=== PATIENT | male | born 1980 | race Caucasian/White ===

== ENCOUNTER 2018-10-08 21:38 | Emergency (ER) | payer MEDICAID ==
[~2018-10-08] VITALS: Ht 182.9 cm; Wt 80.1 kg
[~2018-10-08 21:38] MED LIST: GUAI10SY2 PO
[2018-10-08 22:14] VITALS: BP 145/87
[2018-10-08] MEDS ORDERED: bacitracin 15gm ointment TP ONE (22:20)
== END 2018-10-09 00:40 ==
LOC: ER 21:38
DX: S01.01XA Laceration without foreign body of scalp, initial encounter (principal); F17.200 Nicotine dependence, unspecified, uncomplicated; Z79.899 Other long term (current) drug therapy; X79.XXXA Intentional self-harm by blunt object, initial encounter; Y93.89 Activity, other specified; Y92.89 Other specified places as the place of occurrence of the external cause; Y99.8 Other external cause status
CPT/HCPCS: 70450; 99284

== ENCOUNTER 2019-01-27 09:54 | Emergency (ER) | payer MEDICAID ==
[~2019-01-27] VITALS: Ht 182.9 cm; Wt 77.3 kg
[2019-01-27 10:16] VITALS: BP 130/87
[2019-01-27] MEDS ORDERED: SULF1TAB49 PO (11:44)
== END 2019-01-27 11:57 | disposition home or self-care (01) ==
LOC: ER 09:55
DX: L02.414 Cutaneous abscess of left upper limb (principal); L98.8 Other specified disorders of the skin and subcutaneous tissue; Z79.899 Other long term (current) drug therapy
CPT/HCPCS: 99283

== ENCOUNTER 2019-07-26 09:03 | Emergency (ER) | payer MEDICAID, OTHER ==
[~2019-07-26] VITALS: Ht 182.9 cm; Wt 75.0 kg
[2019-07-26] MEDS ORDERED: diphenhydrAMINE 50 mg/ml inj IM ONE (09:10)
[2019-07-26] MEDS ORDERED: haloperidol lactate 5mg/ml inj IM ONE (09:10)
[2019-07-26] MEDS ORDERED: LORazepam 2 mg/ml vial IM ONE (09:10)
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
[2019-07-26 10:24] LABS: BASOPHILS % (AUTO) 0.8 % (0-1); EOSINOPHILS # (AUTO) 0.1 X10'3 (0-0.9); EOSINOPHILS % (AUTO) 1.2 % (0-6); HEMATOCRIT 45.1 % (42.0-52.0); HEMOGLOBIN 15.4 g/dl (14.0-17.9); LYMPHOCYTES # (AUTO) 2.2 X10'3 (1.1-4.8); LYMPHOCYTES % (AUTO) 39.6 % (21-51); MEAN CORPUSCULAR HEMOGLOBIN 30.7 PG (27.0-31.0); MEAN CORPUSCULAR HGB CONC 34.2 g/dL (33.0-36.5); MEAN CORPUSCULAR VOLUME 89.8 FL (78-98); MEAN PLATELET VOLUME 7.3 FL (7.4-10.4); MONOCYTES # (AUTO) 0.4 X10'3 (0-0.9); MONOCYTES % (AUTO) 7.8 % (2-12); NEUTROPHILS # (AUTO) 2.8 X10'3 (1.8-7.7); NEUTROPHILS % (AUTO) 50.6 % (42-75); PLATELET COUNT 317 X10'3 (140-440); RED BLOOD COUNT 5.02 X10'6 (4.70-6.10); RED CELL DISTRIBUTION WIDTH 12.9 % (11.5-14.5); WHITE BLOOD COUNT 5.5 X10'3 (4.5-11.0)
[2019-07-26 10:40] LABS: ALANINE AMINOTRANSFERASE 31 U/L (12-78); ALBUMIN 4.3 G/DL (3.4-5.0); ALBUMIN/GLOBULIN RATIO 1.4 (1.1-1.5); ALKALINE PHOSPHATASE 56 IU/L (46-116); ANION GAP 13 (8-16); ASPARTATE AMINO TRANSFERASE 36 U/L (10-37); BILIRUBIN,TOTAL 1.9 MG/DL (0.1-1.0); BLOOD UREA NITROGEN 14 MG/DL (7-18); BUN/CREATININE RATIO 16.3 (5.4-32.0); CALCIUM 8.5 MG/DL (8.5-10.1); CHLORIDE 102 MMOL/L (99-107); CREATININE 0.86 MG/DL (0.60-1.10); ETHANOL < 0.010 GM/DL (0.0-0.010); GLUCOSE 103 MG/DL (70-104); SODIUM 140 MMOL/L (135-145); TOTAL CARBON DIOXIDE 25.1 MMOL/L (24-32); TOTAL PROTEIN 7.3 G/DL (6.4-8.2); eGFR > 90 ML/MIN
[2019-07-26 10:41] LABS: POTASSIUM 2.5 MMOL/L (3.5-5.1)
[2019-07-26 10:47] LABS: CLARITY,URINE CLEAR (Clear); COLOR,URINE YELLOW (Yellow); GLUCOSE, URINE NEGATIVE (Neg); KETONES,URINE 40 mg/dl (Neg); LEUKOCYTE ESTERASE ,URINE NEGATIVE (Neg); NITRITES, URINE NEGATIVE (Neg); OCCULT BLOOD,URINE MODERATE (Neg); PROTEIN,URINE NEGATIVE (Neg)
[2019-07-26] MEDS ORDERED: potassium Cl 20 mEq SR tablet PO ONE (10:50)
[2019-07-26] MEDS ORDERED: potassium 10mEq/100ml NS w/LIDOcaine (10mg/bag) IV SCH (10:50)
[2019-07-26 10:51] LABS: UA COLLECTION TYPE STRAIGHT CATH
[2019-07-26 10:52] LABS: BACTERIA,URINE NONE SEEN /HPF (Neg); MUCUS STRANDS MODERATE /LPF (Neg); SQUAMOUS EPITHELIAL CELL,UR NONE SEEN /LPF (FEW); WBC,URINE 0-4 /HPF (0-4)
[2019-07-26 11:00] LABS: URINE AMPHETAMINE SCREEN POSITIVE (Neg); URINE BARBITUATE SCREEN NEGATIVE (Neg); URINE BENZODIAZEPINES SCREEN NEGATIVE (Neg); URINE CANNABINOID SCREEN POSITIVE (Neg); URINE COCAINE SCREEN NEGATIVE (Neg); URINE METHADONE SCREEN NEGATIVE (Neg); URINE OPIATE SCREEN NEGATIVE (Neg); URINE PHENCYCLIDINE SCREEN NEGATIVE (Neg)
[2019-07-26 11:13] LABS: MAGNESIUM 1.9 MG/DL (1.5-2.4)
[2019-07-26] MEDS: potassium CL 10mEq/100ml bag 100 ML IV SCH ×2 (11:29→14:14)
[2019-07-26] MEDS ORDERED: potassium Cl 10 mEq/100mL bag IV ONE (11:30)
[2019-07-26] MEDS: magnesium 2GM in 50ml NS 50 ML IV SCH ×2 (11:36→14:16)
--- NOTE | 2019-07-26 12:10 | NUR ---
[id number] CINDY MARSH. PTS FATHER CALL ANYTIME
--- NOTE | 2019-07-26 12:41 | NUR ---
PT IN BED APPEARS TO BE SLEEPING
[2019-07-26] MEDS ORDERED: normal saline 1000ml 1,000 ML IV ONE (14:15)
[2019-07-26 14:50] VITALS: BP 133/88
--- NOTE | 2019-07-26 15:03 | NUR ---
pt is awake calm and now eating lunch he know where he is at but does not remember his dad bring him in here this morning or what happen state that he is not hearing voices at this time
[2019-07-26 15:07] LABS: ALANINE AMINOTRANSFERASE 27 U/L (12-78); ALBUMIN 3.8 G/DL (3.4-5.0); ALBUMIN/GLOBULIN RATIO 1.4 (1.1-1.5); ALKALINE PHOSPHATASE 47 IU/L (46-116); ANION GAP 8 (8-16); ASPARTATE AMINO TRANSFERASE 42 U/L (10-37); BLOOD UREA NITROGEN 12 MG/DL (7-18); CALCIUM 8.6 MG/DL (8.5-10.1); CHLORIDE 105 MMOL/L (99-107); GLUCOSE 84 MG/DL (70-104); POTASSIUM 3.1 MMOL/L (3.5-5.1); SODIUM 140 MMOL/L (135-145); TOTAL CARBON DIOXIDE 27.3 MMOL/L (24-32); TOTAL PROTEIN 6.6 G/DL (6.4-8.2); eGFR 84 ML/MIN
--- NOTE | 2019-07-26 15:37 | NUR ---
faxed [facility] new pt packet
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
--- NOTE | 2019-07-26 16:50 | NUR ---
[facility], speaking with patient. Continue to monitor.
== END 2019-07-26 18:18 | disposition home or self-care (01) ==
LOC: ER 09:03
DX: F29 Unspecified psychosis not due to a substance or known physiological condition (principal); F15.10 Other stimulant abuse, uncomplicated; F17.210 Nicotine dependence, cigarettes, uncomplicated; F10.10 Alcohol abuse, uncomplicated; R45.851 Suicidal ideations; Z79.899 Other long term (current) drug therapy; Y90.9 Presence of alcohol in blood, level not specified
CPT/HCPCS: 36415; 80053; 80305; 80320; 81001; 83735; 84443; 85025; 93005; 96372; 99284; J1200; J1630; J2060; J3475; J3480; J7030

== ENCOUNTER 2021-03-18 07:26 | Emergency (ER) | payer MEDICAID ==
[~2021-03-18] VITALS: Ht 172.7 cm; Wt 72.7 kg
[2021-03-18] MEDS ORDERED: SULF1TAB49 PO (07:38)
== END 2021-03-18 08:11 | disposition left against medical advice (07) ==
LOC: ER 07:26
DX: L03.111 Cellulitis of right axilla (principal); L03.116 Cellulitis of left lower limb; Z79.899 Other long term (current) drug therapy; Z86.14 Personal history of Methicillin resistant Staphylococcus aureus infection; Z72.89 Other problems related to lifestyle; R46.0 Very low level of personal hygiene; Z59.00 Homelessness unspecified
CPT/HCPCS: 99283

== ENCOUNTER 2021-04-07 07:09 | Emergency (ER) | payer MEDICAID ==
[~2021-04-07] VITALS: Ht 182.9 cm; Wt 77.5 kg
[2021-04-07] MEDS ORDERED: cefepime 1GM/NS ADD-VANTAGE 100 ML IV SCH (08:00)
[2021-04-07] MEDS ORDERED: vancomycin/NS 1 GM ADD-VANTAGE 200 ML IV ONE (08:00)
[2021-04-07] MEDS ORDERED: vancomycin/NS 1 GM ADD-VANTAGE 250 ML IV ONE (08:00)
[2021-04-07 08:23] LABS: BASOPHILS # (AUTO) 0.1 X10'3 (0-0.2); BASOPHILS % (AUTO) 1.1 % (0-1); EOSINOPHILS % (AUTO) 0.3 % (0-6); HEMATOCRIT 42.8 % (42.0-52.0); HEMOGLOBIN 14.2 g/dl (14.0-17.9); MEAN CORPUSCULAR HGB CONC 33.2 g/dL (33.0-36.5); MEAN CORPUSCULAR VOLUME 90.2 FL (78-98); MEAN PLATELET VOLUME 7.3 FL (7.4-10.4); MONOCYTES # (AUTO) 0.6 X10'3 (0-0.9); NEUTROPHILS # (AUTO) 2.4 X10'3 (1.8-7.7); NEUTROPHILS % (AUTO) 47.6 % (42-75); PLATELET COUNT 363 X10'3 (140-440); RED BLOOD COUNT 4.75 X10'6 (4.70-6.10); WHITE BLOOD COUNT 5.1 X10'3 (4.5-11.0)
[2021-04-07 08:30] LABS: ALBUMIN 3.2 G/DL (3.4-5.0); ANION GAP 8 (8-16); BLOOD UREA NITROGEN 13 MG/DL (7-18); BUN/CREATININE RATIO 15.1 (5.4-32.0); CALCIUM 8.8 MG/DL (8.5-10.1); CHLORIDE 102 MMOL/L (99-107); CREATININE 0.86 MG/DL (0.60-1.10); GLUCOSE 97 MG/DL (70-104); POTASSIUM 3.6 MMOL/L (3.5-5.1); SODIUM 138 MMOL/L (135-145); TOTAL CARBON DIOXIDE 27.9 MMOL/L (24-32); eGFR > 90 ML/MIN
[2021-04-07] MEDS ORDERED: CLIN300C54 PO (08:48)
[2021-04-07 10:02] VITALS: BP 121/68
== END 2021-04-07 10:56 | disposition home or self-care (01) ==
LOC: ER 07:09
DX: L03.116 Cellulitis of left lower limb (principal); L03.115 Cellulitis of right lower limb; R53.1 Weakness; R11.0 Nausea; Z86.14 Personal history of Methicillin resistant Staphylococcus aureus infection; Z72.89 Other problems related to lifestyle; Z79.2 Long term (current) use of antibiotics
CPT/HCPCS: 36415; 80048; 83605; 85025; 96365; 96368; 99284; J0692; J3370

== ENCOUNTER 2021-04-22 19:24 | Emergency (ER) | payer MEDICAID ==
[~2021-04-22] VITALS: Ht 182.9 cm; Wt 75.3 kg
[2021-04-22 19:26] VITALS: BP 123/79
[2021-04-22] MEDS ORDERED: DOXY-135 PO (19:37)
[2021-04-22] MEDS ORDERED: MUPI22OI30 TOP (19:37)
[2021-04-22] MEDS ORDERED: mupirocin 2% ointment 22GM TP STA (19:54)
[2021-04-22] MEDS ORDERED: DOXYCYCLINE 100MG CAPSULE PO STA (19:54)
== END 2021-04-22 20:19 | disposition home or self-care (01) ==
LOC: ER 19:24
DX: L03.011 Cellulitis of right finger (principal); Z72.89 Other problems related to lifestyle; Z79.899 Other long term (current) drug therapy
CPT/HCPCS: 99283

== ENCOUNTER 2021-08-23 11:59 | Emergency (ER) | payer MEDICAID ==
[~2021-08-23] VITALS: Ht 182.9 cm; Wt 81.8 kg
[2021-08-23] MEDS ORDERED: SULF1TAB49 PO (12:53)
[2021-08-23 13:34] VITALS: BP 121/79
== END 2021-08-23 13:37 | disposition home or self-care (01) ==
LOC: ER 12:00
DX: L02.415 Cutaneous abscess of right lower limb (principal); Z72.89 Other problems related to lifestyle; Z79.899 Other long term (current) drug therapy
CPT/HCPCS: 10060; 99283

== ENCOUNTER 2022-03-13 15:26 | Emergency (ER) | payer MEDICAID ==
[~2022-03-13] VITALS: Ht 182.9 cm; Wt 68.0 kg
[2022-03-13 15:43] VITALS: BP 128/70
== END 2022-03-13 16:57 | disposition left against medical advice (07) ==
LOC: ER 15:27
DX: R21 Rash and other nonspecific skin eruption (principal); Z53.21 Procedure and treatment not carried out due to patient leaving prior to being seen by health care provider

== ENCOUNTER 2022-03-26 12:10 | Emergency (ER) | payer MEDICAID ==
[~2022-03-26] VITALS: Ht 182.9 cm; Wt 70.5 kg
[2022-03-26 12:32] VITALS: BP 115/71
[2022-03-26] MEDS ORDERED: SULF1TAB49 PO (13:13)
[2022-03-26] MEDS ORDERED: MUPI22OI30 TOP (13:13)
--- NOTE | 2022-03-27 10:57 | NUR ---
Received order for consult. Called patient and left message.
== END 2022-03-26 13:57 | disposition home or self-care (01) ==
LOC: ER 12:11
DX: L01.09 Other impetigo (principal); L53.8 Other specified erythematous conditions; Z86.14 Personal history of Methicillin resistant Staphylococcus aureus infection; Z79.899 Other long term (current) drug therapy
CPT/HCPCS: 99283

== ENCOUNTER 2022-09-05 17:54 | Emergency (ER) | payer MEDICAID ==
[~2022-09-05] VITALS: Ht 182.9 cm; Wt 71.2 kg
[2022-09-05 18:28] VITALS: BP 163/101
[2022-09-06] MEDS ORDERED: CEPH250T PO (21:15)
[2022-09-06] MEDS ORDERED: SULF1TAB45 PO (21:15)
== END 2022-09-05 19:41 | disposition left against medical advice (07) ==
LOC: ER 17:55
DX: M79.603 Pain in arm, unspecified (principal); Z53.21 Procedure and treatment not carried out due to patient leaving prior to being seen by health care provider
CPT/HCPCS: 99281

== ENCOUNTER → 2022-09-06 | Emergency (ER) | payer MEDICAID ==
[~2022-09-06] VITALS: Ht 182.9 cm; Wt 71.2 kg
[~2022-09-06] MED LIST changes: +CEPH250T PO; +SULF1TAB45 PO
[2022-09-06 19:40] VITALS: BP 111/80
== END | disposition home or self-care (01) ==
LOC: ER 19:34
DX: L02.413 Cutaneous abscess of right upper limb (principal); Z86.14 Personal history of Methicillin resistant Staphylococcus aureus infection; Z72.89 Other problems related to lifestyle; Z79.899 Other long term (current) drug therapy
CPT/HCPCS: 10060; 99283

== ENCOUNTER 2023-05-09 20:46 | Emergency (ER) | payer MEDICAID ==
[~2023-05-09] VITALS: Ht 180.3 cm; Wt 71.3 kg
[~2023-05-09 20:46] MED LIST changes: -CEPH250T PO; -SULF1TAB45 PO
[2023-05-09 20:59] VITALS: BP 130/80; PULSE 96; RESP 18; TEMP 98.5; O2SAT 98
== END 2023-05-10 00:24 | disposition left against medical advice (07) ==
LOC: ER 20:46
DX: R51.9 Headache, unspecified (principal); Z53.21 Procedure and treatment not carried out due to patient leaving prior to being seen by health care provider
CPT/HCPCS: 99281

== ENCOUNTER 2023-07-10 11:39 | Emergency (ER) | payer MEDICAID ==
[~2023-07-10] VITALS: Ht 182.9 cm; Wt 71.6 kg
[2023-07-10 12:08] VITALS: BP 129/81; PULSE 107; RESP 18; TEMP 98.7; O2SAT 99
== END 2023-07-10 12:49 | disposition home or self-care (01) ==
LOC: ER 11:40
DX: Z51.89 Encounter for other specified aftercare (principal); Z79.899 Other long term (current) drug therapy
CPT/HCPCS: 99281